=== PATIENT | male | born 1970 | race Caucasian/White ===

== ENCOUNTER 2018-09-15 12:12 | Observation (INO) ==
[2018-09-15 13:24] LABS: Basophils # 0.1 K/mcL (0.0-0.2); Basophils % 0.9 %; Eosinophils % 0.7 %; Hematocrit 50.7 % (37.5-50.1); Hemoglobin 16.9 g/dL (12.9-16.9); Immature Granulocytes % 0.2 % (0-4); Lymphocytes # 1.4 K/mcL (0.6-4.6); Lymphocytes % 25.9 %; Mean Corpuscular HGB Conc 33.3 g/dL (31.6-35.5); Mean Corpuscular Hemoglobin 29.6 pg (28.0-33.3); Mean Corpuscular Volume 88.8 fL (83.0-100.0); Mean Platelet Volume 8.4 fL (9.4-12.4); Monocytes # 0.4 K/mcL (0.0-1.3); Monocytes % 7.6 %; Neutrophils # 3.6 K/mcL (1.6-8.9); Platelet Count 196 K/mcL (140-400); Red Blood Count 5.71 M/mcL (4.19-5.50); Red Cell Distribution Width 11.8 % (11.5-14.5); Segmented Neutrophils % 64.7 %
--- NOTE | 2018-09-15 13:37 | Emergency Department Note ---
Disposition Clinical Impression: TIA (transient ischemic attack) Disposition: Admitted As Inpatient Condition: Good Referrals: Pamela Ferguson CNP [Primary Care Provider] - General Adult HPI - General Chief complaint: ED Weakness Stated complaint: Weakness Time Seen by Provider: 09/15/18 12:15 Source: EMS Limitations: no limitations - History of Present Illness Pain Scale: 0 - Related Data Home Medications Medication Instructions Recorded Confirmed Trihexyphenidyl [Artane] 2 mg PO BID 09/27/15 08/11/17 diazePAM [Valium] 5 mg PO BID 07/08/16 08/11/17 Previous Rx's Medication Instructions Recorded Triamcinolone Acet 0.1% CRM 1 appl TP TID PRN #1 tube 08/11/17 [Kenalog] Allergies Allergy/AdvReac Type Severity Reaction Status Date / Time Amoxicillin Allergy Anaphylaxis Verified 06/07/18 08:25 sulfamethoxazole Allergy Swelling Verified 06/07/18 08:25 [From Bactrim] of Lip/Tongue/Throat tramadol Allergy Seizure Verified 01/03/17 19:49 trimethoprim [From Bactrim] Allergy Swelling Verified 01/03/17 19:49 of Lip/Tongue/Throat Paroxetine [From Paxil] AdvReac See Verified 01/03/17 19:49 Comments Past Medical History - Past Medical History Medical history: Reports: hypertension Surgical history: Reports: appendectomy, other Psychiatric history: Reports: anxiety - Social History Smoking Status: Current every day smoker Smokeless Tobacco Status: No Alcohol use: Reports: none Drug use: Reports: none Physical Exam - General Limitations: no limitations General appearance: alert, in no apparent distress Course Vital Signs Temperature 98.4 F 09/15/18 12:14 Pulse Rate 81 09/15/18 12:14 Respiratory Rate 16 09/15/18 12:14 Blood Pressure 140/96 09/15/18 12:14 O2 Sat by Pulse Oximetry 100 09/15/18 12:14 Temperature 98.4 F 09/15/18 12:14 Pulse Rate 81 09/15/18 12:14 Respiratory Rate 16 09/15/18 12:14 Blood Pressure 140/96 09/15/18 12:14 O2 Sat by Pulse Oximetry 100 09/15/18 12:14 Oxygen Delivery Oxygen Delivery Room Air Medical Decision Making - Lab Data Result diagrams: 09/15/18 13:12 Lab Results 09/15/18 Range/Units 13:12 WBC 5.5 (4.3-11.1) K/mcL RBC 5.71 H (4.19-5.50) M/mcL Hgb 16.9 (12.9-16.9) g/dL Hct 50.7 H (37.5-50.1) % MCV 88.8 (83.0-100.0) fL MCH 29.6 (28.0-33.3) pg MCHC 33.3 (31.6-35.5) g/dL RDW 11.8 (11.5-14.5) % Plt Count 196 (140-400) K/mcL MPV 8.4 L (9.4-12.4) fL Immature Gran % 0.2 (0-4) % Seg Neutrophils % 64.7 % Lymphocytes % 25.9 % Monocytes % 7.6 % Eosinophils % 0.7 % Basophils % 0.9 % Neutrophils # 3.6 (1.6-8.9) K/mcL Lymphocytes # 1.4 (0.6-4.6) K/mcL Monocytes # 0.4 (0.0-1.3) K/mcL Eosinophils # 0.0 (0.0-0.6) K/mcL Basophils # 0.1 (0.0-0.2) K/mcL Attestation Statement - Attestation Attestation: I examined this patient and my medical decision-making was reviewed with the Resident Physician. I agree with the documented findings, disposition and treatment plan as described except to the extent set forth below. 48-year-old male in presented to the emergency room for some intermittent numbness involving the crack of the right mouth as well as the right arm and right leg concerning for possible TIA. Patient's numbness involving the right arm has improved as well as the right leg but still has some numbness in the corner of the right mouth. There is no tongue involvement or vision changes. Concerns for TIA. Patient will need to be admitted for further workup and MRI.
[2018-09-15 13:49] LABS: BUN/Creatinine Ratio 11 (6-26); Blood Urea Nitrogen 10 mg/dL (6-20); Calcium 9.3 mg/dL (8.6-10.3); Carbon Dioxide 29 mEq/L (23-29); Chloride 103 mEq/L (98-107); Glucose 100 mg/dL (70-105); Magnesium 2.2 mg/dL (1.6-2.6); Osmolality,Calculated 281 (280-300); Potassium 4.5 mEq/L (3.5-5.1); Sodium 136 mEq/L (136-145); eGFR For Non-African Americans > 60 (> 60)
--- NOTE | 2018-09-15 14:05 | Emergency Department Note ---
Disposition Clinical Impression: TIA (transient ischemic attack) Disposition: Admitted As Inpatient Condition: Good Weakness HPI - General Chief complaint: ED Weakness Stated complaint: Weakness Time Seen by Provider: 09/15/18 12:15 Source: patient, EMS Limitations: no limitations Nursing Notes Reviewed: Yes Vital Signs Reviewed: Yes - History of Present Illness HPI Narrative: This 48-year-old male complaining of a 2 week intermittent history of anesthesias in his right face including a corner of mouth and right cheekbone, "tightness" in the right side of his neck, and weakness in his right arm and leg. Patient admits to a history of dystonia, but states that the symptoms are new. Patient states that he has experienced some lightheadedness/dizziness and feeling as though he may pass out as well as blurred vision over the past 2 months. Pt Subjective Complaint: generalized weakness/fatigue, paresthesias Onset (ago): week(s) Duration: intermittent Location: RUE, RLE, face Migration: none Pain Severity: none Pain Scale: 0 If pain, quality: tingling, numbness Improves with: none Worsens with: none Associated symptoms: Reports: headaches. Denies: chest pain, confusion, dysuria, shortness of breath - Related Data Home Medications Medication Instructions Recorded Confirmed RX: Trihexyphenidyl [Artane] 2 mg PO BID 09/27/15 09/15/18 RX: diazePAM [Valium] 5 mg PO BID 07/08/16 09/15/18 Previous Rx's Medication Instructions Recorded RX: Aspirin 81 mg PO DAILY tab.chew 09/16/18 Allergies Allergy/AdvReac Type Severity Reaction Status Date / Time Amoxicillin Allergy Anaphylaxis Verified 06/07/18 08:25 sulfamethoxazole Allergy Swelling Verified 06/07/18 08:25 [From Bactrim] of Lip/Tongue/Throat tramadol Allergy Seizure Verified 01/03/17 19:49 trimethoprim [From Bactrim] Allergy Swelling Verified 01/03/17 19:49 of Lip/Tongue/Throat Paroxetine [From Paxil] AdvReac See Verified 01/03/17 19:49 Comments All systems ED: reviewed and negative except as stated. Constitutional: Reports: weight change Eyes: Reports: vision change Cardiovascular: Denies: chest pain Respiratory: Denies: dyspnea Gastrointestinal: Denies: abdominal pain Neurological: Reports: headache, weakness Past Medical History - Past Medical History Medical history: Reports: hypertension Surgical history: Reports: appendectomy, other Psychiatric history: Reports: anxiety - Social History Smoking Status: Current every day smoker Smokeless Tobacco Status: No Alcohol use: Reports: none Drug use: Reports: none Physical Exam - General Limitations: no limitations General appearance: alert, in no apparent distress Course Course Narrative: Patient history, presentation and exam is concerning for TIA. Patient will have CT head, chest x-ray, EKG performed to assess for acute pathology Vital Signs Temperature 98.4 F 09/15/18 12:14 Pulse Rate 81 09/15/18 12:14 Respiratory Rate 16 09/15/18 12:14 Blood Pressure 140/96 09/15/18 12:14 O2 Sat by Pulse Oximetry 100 09/15/18 12:14 Temperature 98.1 F 09/15/18 18:47 Pulse Rate 75 09/15/18 18:47 Respiratory Rate 16 09/15/18 18:47 Blood Pressure 115/77 09/15/18 18:47 O2 Sat by Pulse Oximetry 96 09/15/18 18:47 Oxygen Delivery Oxygen Delivery Room Air Weakness - Medical Records Medical records reviewed: Yes I reviewed the patient's medical records. - Lab Data Lab results reviewed: Yes I reviewed the patient's lab results. Result diagrams: 09/16/18 05:31 09/16/18 05:31 Lab Results 09/15/18 09/15/18 Range/Units 13:12 13:12 WBC 5.5 (4.3-11.1) K/mcL RBC 5.71 H (4.19-5.50) M/mcL Hgb 16.9 (12.9-16.9) g/dL Hct 50.7 H (37.5-50.1) % MCV 88.8 (83.0-100.0) fL MCH 29.6 (28.0-33.3) pg MCHC 33.3 (31.6-35.5) g/dL RDW 11.8 (11.5-14.5) % Plt Count 196 (140-400) K/mcL MPV 8.4 L (9.4-12.4) fL Immature Gran % 0.2 (0-4) % Seg Neutrophils % 64.7 % Lymphocytes % 25.9 % Monocytes % 7.6 % Eosinophils % 0.7 % Basophils % 0.9 % Neutrophils # 3.6 (1.6-8.9) K/mcL Lymphocytes # 1.4 (0.6-4.6) K/mcL Monocytes # 0.4 (0.0-1.3) K/mcL Eosinophils # 0.0 (0.0-0.6) K/mcL Basophils # 0.1 (0.0-0.2) K/mcL Sodium 136 (136-145) mEq/L Potassium 4.5 (3.5-5.1) mEq/L Chloride 103 (98-107) mEq/L Carbon Dioxide 29 (23-29) mEq/L BUN 10 (6-20) mg/dL Creatinine 0.93 (0.70-1.30) mg/dL Est GFR ( Amer) > 60 (> 60) Est GFR (Non-Af Amer) > 60 (> 60) BUN/Creatinine Ratio 11 (6-26) Glucose 100 (70-105) mg/dL Calculated Osmolality 281 (280-300) Calcium 9.3 (8.6-10.3) mg/dL Magnesium 2.2 (1.6-2.6) mg/dL - Radiology Data Radiology results reviewed: Yes I reviewed the patient's radiology results. Head CT 09/15/18 13:30 IMPRESSION: No acute intracranial abnormality. D/ / Franco Cruz / Franco Cruz Interpreting Provider: Franco Cruz Chest X-Ray 09/15/18 13:35 IMPRESSION: No acute cardiopulmonary findings. D/ / Darion Love / Darion Love Interpreting Provider: Darion Love - EKG Data EKG attestation: Yes I reviewed and interpreted this EKG. EKG results narrative: Patient EKG shows normal sinus rhythm with a ventricular rate of 81 bpm SC interval of 134 ms, QRS duration of 106 ms, QT/QTc intervals of 367/426, respe ctively. Rate rhythm and axis appear normal and there appears to be no signs of acute ischemic change.
--- NOTE | 2018-09-15 16:22 | Internal Med History&Physical ---
Date of Encounter: 09/15/18 Time of Encounter: 15:00 Internal Medicine - H&P: HPI Chief complaint: Her sensation of face/foot Admitted From: Home History of present illness: Patient is a 48-year-old male with past medical history significant for generalized anxiety disorder and dystonia who presents to the ER on 09/15/18 due to altered sensation on right corner of mouth and dorsal aspect of right foot. Patient reported that his symptoms started approximately one day ago and has been intermittent lasting for minutes. Patient reports at times having the inability to move his muscles. Patients symptoms continued the day of admissio n and was concerned and so decided to come into the ER for evaluation. In the ER, CT of the head showed no acute findings and chest x-ray was negative for any acute findings as well; labs were unremarkable. Patient will be admitted to the medical surgical floor for CVA/TIA rule out. Past Med Surg Social Fam HX - Past Medical History Medical history: hypertension Additional medical history: dystonia Psychiatric history: anxiety - Past Surgical History Surgical History: appendectomy, other Additional surgical history: undescended testcicle removed - Social History Smoking Status: Current every day smoker Smokeless Tobacco Status: No Alcohol use: none Drug use: none - Additional Family History Additional family history: Noncontributory Internal Medicine - H&P: Meds Trihexyphenidyl [Artane] 2 mg PO BID 09/27/15 [History] diazePAM [Valium] 5 mg PO BID 07/08/16 [History] Allergy/AdvReac Type Severity Reaction Status Date / Time Amoxicillin Allergy Anaphylaxis Verified 06/07/18 08:25 sulfamethoxazole Allergy Swelling Verified 06/07/18 08:25 [From Bactrim] of Lip/Tongue/Throat tramadol Allergy Seizure Verified 01/03/17 19:49 trimethoprim [From Bactrim] Allergy Swelling Verified 01/03/17 19:49 of Lip/Tongue/Throat Paroxetine [From Paxil] AdvReac See Verified 01/03/17 19:49 Comments All Systems PM: A 10-system review of systems was performed and is negative for pertinent findings except as documented above in the HPI. - Constitutional Vitals: Temp Pulse Resp BP Pulse Ox 98.4 F 77 16 129/94 100 09/15/18 12:14 09/15/18 14:59 09/15/18 14:59 09/15/18 14:59 09/15/18 12:14 General appearance: Present: A&O X 3, no acute distress Exam: As below - Head Head exam: Present: atraumatic, normocephalic - Eye Eye exam: Present: EOMI, normal appearance. Absent: nystagmus - ENT ENT exam: Present: mucous membranes moist - Respiratory Respiratory exam: Present: CTAB. Absent: accessory muscle use, rales, rhonchi, wheezes - Cardiovascular Cardiovascular exam: Present: RRR, +S1, +S2. Absent: diastolic murmur, gallop, rubs, systolic murmur - GI/Abdominal GI/Abdominal exam: Present: normal bowel sounds, soft, no peritoneal signs. Absent: distended, tenderness - Extremities Exam Extremities exam: Absent: pedal edema - Expanded Lower Extremities Exam Lower Leg exam: Absent: swelling - Neurological Exam Neurological exam: Present: CN II-XII intact, oriented X3, no focal deficits, strengths equal and symetr throughout. Absent: motor sensory deficit, facial droop, speech deficit - Psychiatric Psychiatric exam: Present: anxious - Skin Skin exam: Present: normal color Internal Med - H&P Results - Labs CBC & Chem 7: 09/15/18 13:12 09/15/18 13:12 Labs: Short CBC 09/15/18 Range/Units 13:12 WBC 5.5 (4.3-11.1) K/mcL Hgb 16.9 (12.9-16.9) g/dL Hct 50.7 H (37.5-50.1) % Plt Count 196 (140-400) K/mcL Neutrophils # 3.6 (1.6-8.9) K/mcL BMP 09/15/18 13:12 Sodium 136 Potassium 4.5 Chloride 103 Carbon Dioxide 29 BUN 10 Creatinine 0.93 Glucose 100 Calcium 9.3 - Impressions ITS Impressions Head CT 09/15/18 13:30 IMPRESSION: No acute intracranial abnormality. D/ / Franco Cruz / Franco Cruz Interpreting Provider: Franco Cruz Chest X-Ray 09/15/18 13:35 IMPRESSION: No acute cardiopulmonary findings. D/ / Darion Love / Darion Love Interpreting Provider: Darion Love - Assessment and plan (1) Sensation disturbance of skin Current Visit: Yes Status: Acute Assessment and plan: Patient presents due to altered sensation on right corner of mouth and dorsal aspect of right foot. CT of the head showed no acute findings. Will order MRI and MRA of neck/brain Will consult neurology and appreciate recommendations (2) Dystonia Current Visit: Yes Status: Acute Assessment and plan: Patient reports at least a 10 year history of dystonia on Artane Continue current management Neurology consulted as above and appreciate any additional recommendations (3) MO (generalized anxiety disorder) Current Visit: Yes Status: Acute Assessment and plan: Continue home dose of diazepam (4) DVT prophylaxis Current Visit: Yes Status: Acute Assessment and plan: Subcutaneous heparin - Time Spent With Patient Total time spent is greater than 50% in coordination of care (as documented) at patient's floor/unit and/or counseling patient:
[2018-09-15] MEDS ORDERED: Naloxone 0.4 MG/ML INJ IVP PRN (16:26)
[2018-09-15] MEDS: Aspirin 81 MG TAB.CHEW PO SCH (18:08)
[2018-09-15] MEDS ORDERED: Perflutren Lipid Microsphere 1.3 ML in 0.9 % Sodium Chloride 8.7 ML IVP ONE (19:26)
[2018-09-15] MEDS: diazePAM 5 MG TABLET PO SCH (20:18)
[2018-09-16 05:43] LABS: Basophils # 0.1 K/mcL (0.0-0.2); Basophils % 0.9 %; Eosinophils # 0.1 K/mcL (0.0-0.6); Eosinophils % 1.1 %; Hematocrit 51.4 % (37.5-50.1); Hemoglobin 16.9 g/dL (12.9-16.9); Immature Granulocytes % 0.1 % (0-4); Lymphocytes # 2.3 K/mcL (0.6-4.6); Lymphocytes % 32.8 %; Mean Corpuscular HGB Conc 32.9 g/dL (31.6-35.5); Mean Corpuscular Hemoglobin 29.7 pg (28.0-33.3); Mean Corpuscular Volume 90.3 fL (83.0-100.0); Mean Platelet Volume 8.5 fL (9.4-12.4); Monocytes # 0.5 K/mcL (0.0-1.3); Monocytes % 6.8 %; Neutrophils # 4.1 K/mcL (1.6-8.9); Platelet Count 197 K/mcL (140-400); Red Blood Count 5.69 M/mcL (4.19-5.50); Red Cell Distribution Width 11.8 % (11.5-14.5); Segmented Neutrophils % 58.3 %
[2018-09-16 06:04] LABS: BUN/Creatinine Ratio 11 (6-26); Blood Urea Nitrogen 11 mg/dL (6-20); Calcium 9.5 mg/dL (8.6-10.3); Carbon Dioxide 29 mEq/L (23-29); Chloride 103 mEq/L (98-107); Glucose 92 mg/dL (70-105); Osmolality,Calculated 283 (280-300); Potassium 4.5 mEq/L (3.5-5.1); Sodium 137 mEq/L (136-145); eGFR For Non-African Americans > 60 (> 60)
[2018-09-16] MEDS: Aspirin 81 MG TAB.CHEW PO SCH (09:20)
[2018-09-16] MEDS: diazePAM 5 MG TABLET PO SCH (09:21)
--- NOTE | 2018-09-16 10:48 | Neurology - Consult Note ---
<Blaise Ortega - Last Filed: 09/16/18 11:00> Date of Encounter: 09/16/18 Time of Encounter: 11:05 Assessment and Plan (1) Sensation disturbance of skin Status: Acute Patient's symptoms do not follow any distribution pattern Neurological exam is nonfocal and nonlateralizing MRI brain, head and neck MRA are negative. Patient states his symptoms have resolved Likely patient's symptoms are not neurological in nature. No further neurological testing necessary. (2) Dystonia Status: Acute Patient has history of dystonia. There are no signs of dystonia on exam. Patient should follow-up with local neurologist at [facility] once discharged History of Present Illness Chief complaint: oral numbness HPI: Mr. Mello is a 48 year old male with history of generalized dystonia presents with chief complaint of numbness to the right corners of mouth and cheek as well as right dorsal aspect of foot. These symptoms started couple days ago and has been intermittent and lasting for a few minutes. Patient also states at times he is not able to move his right foot, toes or has a delayed response when he tries to move them. Patient denies history of stroke, slurred speech, difficulty swallowing, blurry vision, upper extremity numbness or weakness. CT of the head was negative. Past Med Surg Social Fam HX - Past Medical History Medical history: hypertension Additional medical history: dystonia Psychiatric history: anxiety - Past Surgical History Surgical History: appendectomy, other Additional surgical history: undescended testcicle removed - Social History Smoking Status: Current every day smoker Packs per day: 1 Smokeless Tobacco Status: No Alcohol use: none Drug use: none - Family History Father Hx Family Cardiac Disorders: Yes Hx Family Respiratory Disorders: Yes Hx Family Cancer: Yes Mother Hx Family Endocrine Disorder: Yes Medications and Allergies Trihexyphenidyl [Artane] 2 mg PO BID 09/27/15 [History] diazePAM [Valium] 5 mg PO BID 07/08/16 [History] Aspirin 81 mg PO DAILY tab.chew 09/16/18 [Rx] Allergy/AdvReac Type Severity Reaction Status Date / Time Amoxicillin Allergy Anaphylaxis Verified 06/07/18 08:25 sulfamethoxazole Allergy Swelling Verified 06/07/18 08:25 [From Bactrim] of Lip/Tongue/Throat tramadol Allergy Seizure Verified 01/03/17 19:49 trimethoprim [From Bactrim] Allergy Swelling Verified 01/03/17 19:49 of Lip/Tongue/Throat Paroxetine [From Paxil] AdvReac See Verified 01/03/17 19:49 Comments All Systems: The remainder of the systems were reviewed and are negative Review of Systems: Constitutional: Denies fever, chills HEENT: Denies headache, trauma, blurry vision, eye discharge, ear pain, ear discharge neck pain, sore throat, rhinorrhea Heart: Denies chest pain palpitations, LE edema Lungs: Denies shortness of breath cough Abdomen: Denies abdominal pain nausea vomiting diarrhea MSK: Denies back pain, falls, joint pain Kidney: Denies dysuria, hematuria Skin: Denies rash, ulcers Neuro: As per history of present illness Psych: denies axniety, depression Physical Examination - Vital Signs Vital Signs: Initial Vital Signs Temp Pulse Resp BP Pulse Ox 98.4 F 81 16 140/96 100 09/15/18 12:14 09/15/18 12:14 09/15/18 12:14 09/15/18 12:14 09/15/18 12:14 - Exam Exam: General: pleasant, without distress HEENT: Head atraumatic, normocephalic, EOMI, PERRL, absent ear discharge or trauma, Moist Mucous Membranes, uvula midline Neck: nontender to palpation, absent lymphadenopathy, Cardiovascualr: Regular rate and rhythm with no murmur, absent gallops or rubs, absent pedal edema, radial pulses 2 out of 4 Lungs: Clear to auscultation bilaterally, not in respiratory distress Abdomen: Soft nontender, nondistended positive bowel sounds, absent hepatomegaly Skin: warm and dry, absent rash, absent open wounds and nodules MSK: absent clubbing, cyanosis, joints without swelling Psych: Poor insight and judgment, calm - Constitutional General appearance: comfortable - Neurologic Sensorimotor examination: intact Motor examination - right side: 55: deltoids, biceps, triceps, wrist flexion, wrist extension, support team assoc, hip flexors, tibialis Anterior, quadriceps, toe extension (EHL), plantarflexion Motor examination - left side: 5/5: deltoids, biceps, triceps, wrist flexion, wrist extension, hip flexors, support team assoc, quadriceps, tibialis Anterior, toe extension (EHL), plantarflexion Detailed sensory examination: intact, light touch, pain Reflex and gait examination: normal gait Reflexes: Biceps: 2+, Triceps: 2+, Brachioradialis: 2+, Patella: 2+, Achilles: 2+ Mental Status Examination: awake, alert, oriented to person, oriented to place, oriented to time, follows commands appropriately, answers questions appropriately, no agnosia, no aphasia, no aproxia Cranial nerve examination: PERRL, EOMI, visual almaguer intact, sensory to face intact, mastication intact, no facial asymmetry is present, no dysarthria, hearing is intact symmetrically, soft palate elevates bilaterally upon phonation, flexes SCM and trapezius muscles symmetrically with full power, tongue protrudes midline, no atrophy or facial fasiculations present Cerebellar examination: no dysmetria, performs finger to nose and heel to jerez symmetrically without ataxia, no gait ataxia, no truncal ataxia, no difficulty with rapid alternating movements Results - Laboratory Findings CBC and BMP: 09/16/18 05:31 09/16/18 05:31 Abnormal lab findings: Abnormal lab results RBC 5.69 M/mcL (4.19-5.50) H 09/16/18 05:31 Hct 51.4 % (37.5-50.1) H 09/16/18 05:31 MPV 8.5 fL (9.4-12.4) L 09/16/18 05:31 Consult Discharge Plan - Plan Referrals: Pamela Ferguson, OPERATIONS TECH [Advanced Practice Nurse] - 09/22/18 1:00 pm <Jared Kelly I - Last Filed: 09/16/18 16:57> Assessment and Plan (1) Sensation disturbance of skin Status: Acute Pt was seen and examined, my medical decision was reviewed with the Resident Physician, I agree with the documented findings, disposition and treatment plas as described except to the extent set forth below As patient who is a known history of flow dystonia has been following up with neurology in [facility] had been on Artane as well as Valium for the past several years admitted with these multiple nonspecific symptoms predominantly not following any physiological pattern to be consistent with TIA or CVA. On neurological examination I did not see any lateralizing sign to be concern of a stroke. At the same time he did have some mild increased tone in his right lower extremities and in the foot but I did not see any evidence of generalized dystonia in his upper body. Regardless he is getting workup his MRA of the brain and head and neck all has been negative. At this time I would not recommend any further neurological workup except we may check for underlying metabolic abnormalities like vitamin B12 or vitamin D deficiency as may present with some nonspecific symptoms beside that he may continue on his medication that he is been taking at home If Remained stable could be discharged with of follow-up with his primary neurologist Jared Kelly MD History of Present Illness HPI: Mr. Mello is a 48 year old male All Systems: The remainder of the systems were reviewed and are negative Physical Examination - Vital Signs Vital Signs: Initial Vital Signs Temp Pulse Resp BP Pulse Ox 98.4 F 81 16 140/96 100 09/15/18 12:14 09/15/18 12:14 09/15/18 12:14 09/15/18 12:14 09/15/18 12:14 Results - Laboratory Findings CBC and BMP: 09/16/18 05:31 09/16/18 05:31 Abnormal lab findings: Abnormal lab results RBC 5.69 M/mcL (4.19-5.50) H 09/16/18 05:31 Hct 51.4 % (37.5-50.1) H 09/16/18 05:31 MPV 8.5 fL (9.4-12.4) L 09/16/18 05:31
[2018-09-16 11:13] VITALS: BP 102/66
--- NOTE | 2018-09-16 14:12 | Discharge Summary ---
- NOTES TO OUTPATIENT PROVIDER Notes to Outpatient Provider: Patient to follow-up with neurologist at [facility] Date of Encounter: 09/16/18 Time of Encounter: 11:00 - Discharge Diagnosis (1) Sensation disturbance of skin Priority: Primary Status: Acute (2) Dystonia Priority: Secondary Status: Acute Hospital course: Patient is a 48-year-old male with past medical history significant for generalized anxiety disorder and dystonia who presents to the ER on 09/15/18 due to altered sensation on right corner of mouth and dorsal aspect of right foot. Patient reported that his symptoms started approximately one day ago and has been intermittent lasting for minutes. Patient reports at times having the inability to move his muscles. Patients symptoms continued the day of admission and was concerned and so decided to come into the ER for evaluation. In the ER, CT of the head showed no acute findings and chest x-ray was negative for any acute findings as well; labs were unremarkable. Patient will be admitted to the medical surgical floor for CVA/TIA rule out. During patients hospital stay MRI/MRA of the brain and neck were negative without any acute findings. CT of the head also negative without any acute findings as above. Neurology consulted with no further recommendations other than to follow-up as an outpatient with local neurologists at [facility] for management of dystonia. - Time Spent with Patient Total time spent providing and/or coordinating discharge services: Less than 30 minutes - Discharge Medications Home Medications: Trihexyphenidyl [Artane] 2 mg PO BID 09/27/15 [History] diazePAM [Valium] 5 mg PO BID 07/08/16 [History] Aspirin 81 mg PO DAILY tab.chew 09/16/18 [Rx] Allergies/Adverse Reactions: Allergy/AdvReac Type Severity Reaction Status Date / Time Amoxicillin Allergy Anaphylaxis Verified 06/07/18 08:25 sulfamethoxazole Allergy Swelling Verified 06/07/18 08:25 [From Bactrim] of Lip/Tongue/Throat tramadol Allergy Seizure Verified 01/03/17 19:49 trimethoprim [From Bactrim] Allergy Swelling Verified 01/03/17 19:49 of Lip/Tongue/Throat Paroxetine [From Paxil] AdvReac See Verified 01/03/17 19:49 Comments Date of admission: 09/15/18 14:34 Primary care physician: PCP NONE Consults: 09/15/18 16:33 Consult to Neurology [CONS] Routine Consulting Provider: Neurology [facility] Reason for Consult: cva/tia r/o with h/o dystonia Call Completed: Yes - Constitutional Vitals: Temp Pulse Resp BP Pulse Ox 97.8 F 70 17 102/66 97 09/16/18 11:12 09/16/18 11:12 09/16/18 11:12 09/16/18 11:12 09/16/18 11:12 General appearance: Present: A&O X 3, no acute distress Exam: Gen.: Nonacute distress, alert and oriented 3 Skin: Normal color - Patient Status Disposition: Home, Self-Care Condition: Good - Discharge Instructions Follow Up With: NONE,PCP [Primary Care Provider] -
== END 2018-09-16 15:38 | disposition home or self-care (01) ==
LOC: EMEROOARM 12:12 → 3BNU 12:12 → SUATTDRO 14:34 → 3BNU 15:20
PROVIDERS: ADMIT Internal Medicine Nephrology; ATTEND Hospitalist

== ENCOUNTER 2019-04-20 10:52 | Observation (INO) ==
[2019-04-20] MEDS ORDERED: 0.9 % Sodium Chloride 1,000 ML IVC ONE (11:23)
--- NOTE | 2019-04-20 11:46 | Emergency Department Note ---
Disposition Clinical Impression: Chest pain, rule out acute myocardial infarction Disposition: Admitted As Inpatient Condition: Fair Instructions: Chest Pain (ED) Forms: ED Satisfaction Letter Time of Disposition: 12:20 General Adult HPI - General Chief complaint: ED Syncope Stated complaint: hypotension Time Seen by Provider: 04/20/19 11:14 Source: patient Limitations: no limitations Nursing Notes Reviewed: Yes Vital Signs Reviewed: Yes - History of Present Illness HPI Narrative: 49-year-old male presents emergency Department with concerns of lightheadedness and episodes of hypotension. Patient states these episodes occur when he stands up quickly or exerts himself. He also states that he has palpitations and chest pressure that time. He states he is currently taking Artane and Valium at home. He has been taking his blood pressure prior to taking his medications and if it is low he will skip it. He states yesterday his blood pressure was 75/30. Today in the emergency department he is not hypotensive however he did not become tachycardic with sitting up in the bed. He does state that he has had issues with dehydration in the past. Patient denies recent trauma. He denies associated diaphoresis or shortness of breath with chest pain. It does not radiate. Pain Scale: 0 - Related Data Home Medications Medication Instructions Recorded Confirmed Trihexyphenidyl [Artane] 2 mg PO BID 09/27/15 04/20/19 diazePAM [Valium] 5 mg PO BID 07/08/16 04/20/19 Cholecalciferol (Vitamin D3) 2,000 unit PO 04/20/19 [Vitamin D] Cyanocobalamin (Vitamin B-12) 04/20/19 [Vitamin B-12] Cyanocobalamin (Vitamin B-12) 500 mcg PO 04/20/19 [Vitamin B-12] Previous Rx's Medication Instructions Recorded Aspirin 81 mg PO DAILY tab.chew 09/16/18 Allergies Allergy/AdvReac Type Severity Reaction Status Date / Time Amoxicillin Allergy Anaphylaxis Verified 06/07/18 08:25 sulfamethoxazole Allergy Swelling Verified 06/07/18 08:25 [From Bactrim] of Lip/Tongue/Throat tramadol Allergy Seizure Verified 01/03/17 19:49 trimethoprim [From Bactrim] Allergy Swelling Verified 01/03/17 19:49 of Lip/Tongue/Throat Paroxetine [From Paxil] AdvReac See Verified 01/03/17 19:49 Comments All systems ED: reviewed and negative except as stated. Review of Systems: As Per HPI Past Medical History - Past Medical History Attestation: Yes The following information was validated with the patient. Source: patient Medical history: Reports: hypertension Surgical history: Reports: appendectomy, other Psychiatric history: Reports: anxiety - Social History Smoking Status: Current every day smoker Smokeless Tobacco Status: No Alcohol use: Reports: none Drug use: Reports: none Physical Exam General: Alert and in no acute distress Skin: Warm, dry, intact Head: Normocephalic and atraumatic Neck: Supple, trachea midline and no tenderness Cardiovascular: RRR, no murmur, normal perfusion Respiratory: CTAB, no wheezing, cough, or respiratory distress Musculoskeletal: Normal strength, no tenderness, swelling or deformity GI: Soft, nontender, nondistended. Bowel sounds present Neuro: A&O to person, place, time and situation. No focal deficits noted on exam Psychiatric: cooperative and appropriate mood and affect. - General Limitations: no limitations General appearance: alert Course Vital Signs Temperature 98.4 F 04/20/19 10:55 Pulse Rate 81 04/20/19 10:55 Respiratory Rate 14 04/20/19 10:55 Blood Pressure 129/83 04/20/19 10:55 O2 Sat by Pulse Oximetry 98 04/20/19 10:55 Temperature 98.4 F 04/20/19 10:55 Pulse Rate 86 04/20/19 13:01 Respiratory Rate 16 04/20/19 13:01 Blood Pressure 124/89 04/20/19 13:01 O2 Sat by Pulse Oximetry 100 04/20/19 13:01 Oxygen Delivery Oxygen Delivery Room Air Medical Decision Making - MDM Narrative Medical decision making narrative: Laboratory evaluation was largely within normal limits. Initial troponin negative. EKG did not show evidence of STEMI. Patient was significant only concerned about his chest pain is described as a dull ache and worse with exertion. He does have a history of hyperlipidemia, tobacco abuse and family history of cardiac disease. He will be admitted for further care and evaluation of his chest pain. - Medical Records Medical records reviewed: Yes I reviewed the patient's medical records. - Lab Data Lab results reviewed: Yes I reviewed the patient's lab results. Result diagrams: 04/20/19 11:45 04/20/19 11:45 Lab Results 04/20/19 04/20/19 Range/Units 11:45 11:45 WBC 5.9 (4.3-11.1) K/mcL RBC 5.15 (4.19-5.50) M/mcL Hgb 15.2 (12.9-16.9) g/dL Hct 45.0 (37.5-50.1) % MCV 87.4 (83.0-100.0) fL MCH 29.5 (28.0-33.3) pg MCHC 33.8 (31.6-35.5) g/dL RDW 13.2 (11.5-14.5) % Plt Count 182 (140-400) K/mcL MPV 8.9 L (9.4-12.4) fL Immature Gran % 0.2 (0-4) % Seg Neutrophils % 64.7 % Lymphocytes % 27.4 % Monocytes % 6.4 % Eosinophils % 0.5 % Basophils % 0.8 % Neutrophils # 3.8 (1.6-8.9) K/mcL Lymphocytes # 1.6 (0.6-4.6) K/mcL Monocytes # 0.4 (0.0-1.3) K/mcL Eosinophils # 0.0 (0.0-0.6) K/mcL Basophils # 0.1 (0.0-0.2) K/mcL Sodium 138 (136-145) mEq/L Potassium 4.4 (3.5-5.1) mEq/L Chloride 98 (98-107) mEq/L Carbon Dioxide 31 H (23-29) mEq/L BUN 9 (6-20) mg/dL Creatinine 0.87 (0.70-1.30) mg/dL Est GFR ( Amer) > 60 (> 60) Est GFR (Non-Af Amer) > 60 (> 60) BUN/Creatinine Ratio 10 (6-26) Glucose 90 (70-105) mg/dL Calculated Osmolality 284 (280-300) Calcium 9.7 (8.6-10.3) mg/dL Total Bilirubin 0.8 (0.3-1.0) mg/dL AST 12 L (13-39) Units/L ALT 9 (7-52) Units/L Alkaline Phosphatase 68 (34-104) Units/L Troponin I < 0.03 (< 0.04) ng/mL Serum Total Protein 6.5 (6.4-8.9) g/dL Albumin 4.2 (3.5-5.7) g/dL Globulin 2.3 L (2.4-3.5) g/dL Albumin/Globulin Ratio 1.8 (1.1-2.2) - Radiology Data Radiology results reviewed: Yes I reviewed the patient's radiology results. - EKG Data EKG #1 EKG attestation: Yes I reviewed and interpreted this EKG. EKG results narrative: Normal sinus rhythm with rate of 78 without evidence of STEMI or other dysrhythmia. QTC of 413, QRS 103.
[2019-04-20 11:57] LABS: Basophils # 0.1 K/mcL (0.0-0.2); Basophils % 0.8 %; Eosinophils % 0.5 %; Hemoglobin 15.2 g/dL (12.9-16.9); Immature Granulocytes % 0.2 % (0-4); Lymphocytes # 1.6 K/mcL (0.6-4.6); Lymphocytes % 27.4 %; Mean Corpuscular HGB Conc 33.8 g/dL (31.6-35.5); Mean Corpuscular Hemoglobin 29.5 pg (28.0-33.3); Mean Corpuscular Volume 87.4 fL (83.0-100.0); Mean Platelet Volume 8.9 fL (9.4-12.4); Monocytes # 0.4 K/mcL (0.0-1.3); Monocytes % 6.4 %; Neutrophils # 3.8 K/mcL (1.6-8.9); Platelet Count 182 K/mcL (140-400); Red Blood Count 5.15 M/mcL (4.19-5.50); Red Cell Distribution Width 13.2 % (11.5-14.5); Segmented Neutrophils % 64.7 %
[2019-04-20 12:18] LABS: Alanine Aminotransferase 9 Units/L (7-52); Albumin 4.2 g/dL (3.5-5.7); Albumin/Globulin Ratio 1.8 (1.1-2.2); Alkaline Phosphatase 68 Units/L (34-104); Aspartate Amino Transferase 12 Units/L (13-39); BUN/Creatinine Ratio 10 (6-26); Bilirubin,Total 0.8 mg/dL (0.3-1.0); Blood Urea Nitrogen 9 mg/dL (6-20); Calcium 9.7 mg/dL (8.6-10.3); Carbon Dioxide 31 mEq/L (23-29); Chloride 98 mEq/L (98-107); Globulin 2.3 g/dL (2.4-3.5); Glucose 90 mg/dL (70-105); Osmolality,Calculated 284 (280-300); Potassium 4.4 mEq/L (3.5-5.1); Sodium 138 mEq/L (136-145); Total Protein 6.5 g/dL (6.4-8.9); Troponin I < 0.03 ng/mL (< 0.04); eGFR For Non-African Americans > 60 (> 60)
[2019-04-20] MEDS ORDERED: Aspirin 81 MG TAB.CHEW PO ONE (13:23)
[2019-04-20] MEDS ORDERED: Naloxone 0.4 MG/ML INJ IVP PRN (13:32)
[2019-04-20] MEDS ORDERED: Ondansetron 4 MG/2 ML VIAL IVP PRN (13:32)
[2019-04-20] MEDS ORDERED: MOM Conc 10 ML UD.LIQ PO PRN (13:32)
[2019-04-20] MEDS ORDERED: *HR* Promethazine 25 MG/ML VIAL IVP PRN (13:32)
[2019-04-20] MEDS ORDERED: Mag Hydrox/Al Hydrox/Simeth 30 ML UDC PO PRN (13:32)
[2019-04-20] MEDS ORDERED: Perflutren Lipid Microsphere 1.3 ML in 0.9 % Sodium Chloride 8.7 ML IVP ONE (13:48)
[2019-04-20 14:55] LABS: Amphetamine Screen,Urine Negative ng/mL (Cutoff=1000); Barbiturate Screen,Urine Negative ng/mL (Cutoff=200); Benzodiazepines Screen,Urine Positive ng/mL (Cutoff=200); Cannabinoid Screen,Urine Negative ng/mL (Cutoff = 50); Cocaine Screen,Urine Negative ng/mL (Cutoff= 300); Opiate Screen,Urine Negative ng/mL (Cutoff=300); Phencyclidine Screen,Urine Negative ng/mL (Cutoff=25)
--- NOTE | 2019-04-20 15:25 | Internal Med History&Physical ---
Date of Encounter: 04/20/19 Time of Encounter: 15:22 Internal Medicine - H&P: HPI Admitted From: Home Plans for Post Hospital Care: Home History of present illness: Mr. Mello is a 49 year old male presents emergency Department with concerns of lightheadedness and episodes of hypotension. Patient states these episodes occur when he stands up quickly or exerts himself. He also states that he has palpitations and chest pressure that time. He states he is currently taking Artane and Valium at home. He has been taking his blood pressure prior to taking his medications and if it is low he will skip it. He states yesterday his blood pressure was 75/30. Today in the emergency department he is not hypotensive however he did not become tachycardic with sitting up in the bed. He does state that he has had issues with dehydration in the past. Patient denies recent trauma. He denies associated diaphoresis or shortness of breath with chest pain. It does not radiate. Pt has hx of dystonia and f/u with neurology at outside hospital. He takes Artane and vallium for that and has been on artane for 11 years and vallium for 5 years. He denies recent sick contact. Code status discussed with patient and he wishes to be full code. Past Med Surg Social Fam HX - Past Medical History Medical history: hypertension Additional medical history: generalized dystonia, Psychiatric history: anxiety - Past Surgical History Surgical History: appendectomy, other Additional surgical history: undescended testcicle removed - Social History Smoking Status: Current every day smoker Smokeless Tobacco Status: No Alcohol use: none Drug use: none - Family History Father Hx Family Cardiac Disorders: Yes Hx Family Respiratory Disorders: Yes Hx Family Cancer: Yes Mother Hx Family Endocrine Disorder: Yes Internal Medicine - H&P: Meds Trihexyphenidyl [Artane] 2 mg PO BID 09/27/15 [History] diazePAM [Valium] 5 mg PO TID PRN 07/08/16 [History] Aspirin 81 mg PO DAILY tab.chew 09/16/18 [Rx] Cyanocobalamin (Vitamin B-12) [Vitamin B-12] 500 mcg PO DAILY 04/20/19 [History] Allergy/AdvReac Type Severity Reaction Status Date / Time Amoxicillin Allergy Anaphylaxis Verified 06/07/18 08:25 sulfamethoxazole Allergy Swelling Verified 06/07/18 08:25 [From Bactrim] of Lip/Tongue/Throat tramadol Allergy Seizure Verified 01/03/17 19:49 trimethoprim [From Bactrim] Allergy Swelling Verified 01/03/17 19:49 of Lip/Tongue/Throat Paroxetine [From Paxil] AdvReac See Verified 01/03/17 19:49 Comments All Systems PM: A 10-system review of systems was performed and is negative for pertinent findings except as documented above in the HPI. Review of systems: REVIEW OF SYSTEMS: CONSTITUTIONAL: No weight loss, fever, chills, weakness or fatigue. HEENT: Eyes: No visual loss, blurred vision, double vision or yellow sclerae. Ears, Nose, Throat: No hearing loss, sneezing, congestion, runny nose or sore throat. SKIN: No rash or itching. CARDIOVASCULAR: No chest pain, chest pressure or chest discomfort. No palpitations or edema. RESPIRATORY: No shortness of breath, cough or sputum. GASTROINTESTINAL: No anorexia, nausea, vomiting or diarrhea. No abdominal pain or blood. GENITOURINARY: No dysuria, urgency, or frequency. NEUROLOGICAL: No headache, dizziness, syncope, paralysis, ataxia, numbness or tingling in the extremities. No change in bowel or bladder control. MUSCULOSKELETAL: No muscle, back pain, joint pain or stiffness. HEMATOLOGIC: No anemia, bleeding or bruising. LYMPHATICS: No enlarged nodes. No history of splenectomy. PSYCHIATRIC: No history of depression or anxiety. ENDOCRINOLOGIC: No reports of sweating, cold or heat intolerance. No polyuria or polydipsia. - Constitutional Vitals: Temp Pulse Resp BP Pulse Ox 98.4 F 86 16 124/89 100 04/20/19 10:55 04/20/19 13:01 04/20/19 13:01 04/20/19 13:01 04/20/19 13:01 General appearance: Present: A&O X 3 Exam: PHYSICAL EXAMINATION: GENERAL APPEARANCE: The patient is alert, oriented and in no acute distress. HEENT: Head is normocephalic. The sinuses are nontender. Pupils are equal and reactive. The nares are patent. Oropharynx clear without lesions. NECK: Supple without lymphadenopathy. HEART: Regular rate and rhythm. LUNGS: No crackles or wheezes are heard. ABDOMEN: Soft, nontender, nondistended with good bowel sounds heard. Inguinal area is normal. EXTREMITIES: Without cyanosis, clubbing or edema. NEUROLOGICAL: Gross nonfocal. SKIN: Warm and dry without any rash. Internal Med - H&P Results - Labs CBC & Chem 7: 04/20/19 11:45 04/20/19 11:45 Labs: Short CBC 04/20/19 Range/Units 11:45 WBC 5.9 (4.3-11.1) K/mcL Hgb 15.2 (12.9-16.9) g/dL Hct 45.0 (37.5-50.1) % Plt Count 182 (140-400) K/mcL Neutrophils # 3.8 (1.6-8.9) K/mcL BMP 04/20/19 11:45 Sodium 138 Potassium 4.4 Chloride 98 Carbon Dioxide 31 H BUN 9 Creatinine 0.87 Glucose 90 Calcium 9.7 Cardiac Enzymes 04/20/19 04/20/19 Range/Units 11:45 13:57 Troponin I < 0.03 < 0.03 (< 0.04) ng/mL Liver Function 04/20/19 Range/Units 11:45 Total Bilirubin 0.8 (0.3-1.0) mg/dL AST 12 L (13-39) Units/L ALT 9 (7-52) Units/L Alkaline Phosphatase 68 (34-104) Units/L Albumin 4.2 (3.5-5.7) g/dL - Impressions ITS Impressions Chest X-Ray 04/20/19 11:23 IMPRESSION: Mild left basilar atelectasis. D/ / Susie Mcfarlane MD / Susie Mcfarlane MD Interpreting Provider: Susie Mcfarlane MD - Assessment and Plan (1) Hypotension Current Visit: Yes Status: Acute Assessment and plan: 49 year old male with dystonia and anxiety on artane and vallium presented with reported hypotension and lightheadedness at home. on vallium and artane for dystonia for years. recently noticed low BP and was not able to take Artane and villium due to low bP. BP was normal at ED, labs unremarkable. CXR no infection. Received IVF, will continue. Orthostatic BP and echo. continue cycling trop. Qualifiers: Hypotension type: unspecified hypotension type Qualified Code(s): I95.9 - Hypotension, unspecified (2) Dystonia Current Visit: No Status: Acute Assessment and plan: Currently on artane and vallium, may consult neurology if meds need to be changed. (3) MO (generalized anxiety disorder) Current Visit: No Status: Acute Assessment and plan: continue home vallium. (4) DVT prophylaxis Current Visit: No Status: Acute Assessment and plan: ambulating. - Time Spent With Patient Total time spent is greater than 50% in coordination of care (as documented) at patient's floor/unit and/or counseling patient: Greater than 35 minutes
[2019-04-20 15:48] LABS: Bilirubin,Urine Negative (Negative); Blood,Urine Negative (Negative); Clarity,Urine Clear (Clear); Color,Urine Yellow (Yellow); Glucose,Urine (UA) Normal (Normal); Ketones,Urine Negative (Negative); Leukocyte Esterase,Urine Negative (Negative); Nitrite,Urine Negative (Negative); Protein,Urine Negative (Neg-Trace); Specific Gravity,Urine 1.012 (1.010-1.025); Urobilinogen,Urine Normal (Normal)
[2019-04-20] MEDS: Ringers Solution, Lactated 2,000 ML IVC SCH (16:20)
[2019-04-20] MEDS: diazePAM 5 MG TABLET PO SCH (21:09)
--- NOTE | 2019-04-20 23:57 | Electrocardiograph Report ---
[place] [id number] Test Date: 2019-04-20 Pat Name: Rhys Mello Department: EXAM7 Room: 3B48 Gender: M Occupational Health Nursing Director: : 1970 Requested By: Thang Smith Order Number: [id number] Reading MD: Dg Barragan Measurements Intervals [place] Rate: 78 P: 60 NM: 129 QRS: 85 QRSD: 103 T: 66 QT: 362 QTc: 413 Interpretive Statements Sinus rhythm RSR' in V1 or V2, probably normal variant Electronically Signed On 04-20-2019 23:55:52 EDT by Dg Barragan
[2019-04-21 06:48] LABS: Basophils % 0.7 %; Eosinophils # 0.1 K/mcL (0.0-0.6); Eosinophils % 1.1 %; Hematocrit 41.8 % (37.5-50.1); Immature Granulocytes % 0.2 % (0-4); Lymphocytes # 1.6 K/mcL (0.6-4.6); Lymphocytes % 35.1 %; Mean Corpuscular HGB Conc 33.5 g/dL (31.6-35.5); Mean Corpuscular Hemoglobin 29.4 pg (28.0-33.3); Mean Corpuscular Volume 87.8 fL (83.0-100.0); Monocytes # 0.3 K/mcL (0.0-1.3); Neutrophils # 2.5 K/mcL (1.6-8.9); Platelet Count 173 K/mcL (140-400); Red Blood Count 4.76 M/mcL (4.19-5.50); Red Cell Distribution Width 13.2 % (11.5-14.5); Segmented Neutrophils % 55.9 %
[2019-04-21 07:01] LABS: BUN/Creatinine Ratio 8 (6-26); Blood Urea Nitrogen 7 mg/dL (6-20); Calcium 9.1 mg/dL (8.6-10.3); Carbon Dioxide 30 mEq/L (23-29); Chloride 104 mEq/L (98-107); Glucose 89 mg/dL (70-105); Osmolality,Calculated 285 (280-300); Phosphorous 3.4 mg/dL (2.7-4.5); Potassium 4.3 mEq/L (3.5-5.1); Sodium 139 mEq/L (136-145); eGFR For Non-African Americans > 60 (> 60)
[2019-04-21] MEDS: Aspirin 81 MG TAB.CHEW PO SCH (09:49)
[2019-04-21] MEDS: Ringers Solution, Lactated 2,000 ML IVC SCH (09:50)
[2019-04-21] MEDS: Cyanocobalamin (B-12) 1,000 MCG TABLET PO SCH (09:54)
[2019-04-21] MEDS: diazePAM 5 MG TABLET PO SCH ×3 (10:01→20:21)
--- NOTE | 2019-04-21 11:15 | Internal Med Progress Note ---
Hospitalist Progress Note - Encounter Date of Encounter: 04/21/19 Time of Encounter: 11:13 - Subjective Interval History: Patient seen and examined in the room. Blood pressure was reviewed with patient, he reported no lightheadedness overnight. He denies any chest pain, shortness of breath, or palpitation. - Exam Vitals: Temp Pulse Resp BP Pulse Ox 97.8 F 66 16 133/82 98 04/21/19 07:24 04/21/19 07:24 04/21/19 07:04/21/19 07:04/21/19 09:49 Exam: PHYSICAL EXAMINATION: GENERAL APPEARANCE: The patient is alert, oriented and in no acute distress. HEENT: Head is normocephalic. The sinuses are nontender. Pupils are equal and reactive. The nares are patent. Oropharynx clear without lesions. NECK: Supple without lymphadenopathy. HEART: Regular rate and rhythm. LUNGS: No crackles or wheezes are heard. ABDOMEN: Soft, nontender, nondistended with good bowel sounds heard. Inguinal area is normal. EXTREMITIES: Without cyanosis, clubbing or edema. NEUROLOGICAL: Gross nonfocal. SKIN: Warm and dry without any rash. - Assessment and Plan (1) Hypotension Current Visit: Yes Status: Acute Assessment and Plan: 04/20 49 year old male with dystonia and anxiety on artane and vallium presented with reported hypotension and lightheadedness at home. on vallium and artane for dystonia for years. recently noticed low BP and was not able to take Artane and villium due to low bP. BP was normal at ED, labs unremarkable. CXR no infection. Received IVF, will continue. Orthostatic BP and echo. continue cycling trop. 04/21 Orthostatic vital signs was normal. Echocardiogram revealed normal ejection fraction, mild tricuspid regurgitation, trivial pericardial effusion without evidence of cardiac tamponade. Patient home medication Artane and Valium were continued. Continue monitoring BP, if BP continues to be normal, anticipated discharge in the morning, we will recommend patient to get a new blood pressure machine at home. (2) Dystonia Current Visit: No Status: Acute Assessment and Plan: Currently on artane and vallium, may consult neurology if meds need to be changed. (3) MO (generalized anxiety disorder) Current Visit: No Status: Acute Assessment and Plan: continue home vallium. (4) DVT prophylaxis Current Visit: No Status: Acute Assessment and Plan: ambulating. - Time Spent with Patient Total time spent is greater than 50% in coordination of care (as documented) at patient's floor/unit and/or counseling patient: Greater than 35 minutes Plan of Care Discussed with: patient Internal Medicine: Result - Labs CBC & Chem 7: 04/21/19 06:19 04/21/19 06:19 Labs: Short CBC 04/20/19 04/21/19 Range/Units 11:45 06:19 WBC 5.9 4.5 (4.3-11.1) K/mcL Hgb 15.2 14.0 (12.9-16.9) g/dL Hct 45.0 41.8 (37.5-50.1) % Plt Count 182 173 (140-400) K/mcL Neutrophils # 3.8 2.5 (1.6-8.9) K/mcL BMP 04/20/19 04/21/19 11:45 06:19 Sodium 138 139 Potassium 4.4 4.3 Chloride 98 104 Carbon Dioxide 31 H 30 H BUN 9 7 Creatinine 0.87 0.87 Glucose 90 89 Calcium 9.7 9.1 Cardiac Enzymes 04/20/19 04/20/19 04/20/19 Range/Units 11:45 13:57 19:36 Troponin I < 0.03 < 0.03 < 0.03 (< 0.04) ng/mL Liver Function 04/20/19 Range/Units 11:45 Total Bilirubin 0.8 (0.3-1.0) mg/dL AST 12 L (13-39) Units/L ALT 9 (7-52) Units/L Alkaline Phosphatase 68 (34-104) Units/L Albumin 4.2 (3.5-5.7) g/dL Urine 04/20/19 Range/Units 11:50 Urine Color Yellow (Yellow) Urine Clarity Clear (Clear) Urine pH 8.0 (5.0-8.0) pH Units Ur Specific [place] 1.012 (1.010-1.025) Urine Protein Negative (Neg-Trace) mg/dL Urine Glucose (UA) Normal (Normal) mg/dL - Impressions Impressions Chest X-Ray 04/20/19 11:23 IMPRESSION: Mild left basilar atelectasis. D/ / Susie Mcfarlane MD / Susie Mcfarlane MD Interpreting Provider: Susie Mcfarlane MD Echocardiogram 04/20/19 13:34 Impressions: LVEF 60%. Indeterminate LV diastolic function. Normal right ventricular structure and function. Definity echo contrast was used. Mild tricuspid regurgitation. No pulmonary hypertension. There is a trivial pericardial effusion present. There is no echocardiographic evidence of tamponade. Left Ventricular Wall Motion: Rest Echo Findings All wall segments showed normal motion. Findings: Study Quality * Technically sub-optimal due to body habitus. ECG Findings * Normal sinus rhythm. Left Ventricle * LVEF 60%. * Normal LV chamber size, wall thickness and function. * Indeterminate LV diastolic function. * Definity echo contrast was used. Right Ventricle * Normal right ventricular structure and function. Left Atrium * Normal left atrial size. Right Atrium * Normal right atrial size. Aortic Valve * No aortic regurgitation. * Aortic valve not well visualized. * No aortic stenosis. Mitral Valve * No mitral regurgitation. * Normal mitral valve structure. * No mitral stenosis. Tricuspid Valve * Tricuspid valve not well visualized. * Mild tricuspid regurgitation. * Estimated RA pressure is 3 mmHg. * Estimated RVSP is 29 mmHg. * No pulmonary hypertension. Pulmonic Valve * Pulmonic valve is not well visualized. * No pulmonic stenosis. * No pulmonic regurgitation. Pulmonary Artery * Pulmonary artery not well visualized. Aorta * Normally sized aortic root. Pericardium * There is a trivial pericardial effusion present. * There is no echocardiographic evidence of tamponade. Interatrial Septum * No evidence of PFO by color Doppler. IVC * Normal IVC dimensions and inspiratory collapse. Consult Discharge Plan - Plan Referrals: Pamela Ferguson, [employer] [Primary Care Provider] - 04/28/19 1:00 pm (1) Hypotension Qualifiers: Hypotension type: unspecified hypotension type Qualified Code(s): I95.9 - Hypotension, unspecified
[2019-04-22 08:00] VITALS: BP 129/88
[2019-04-22] MEDS: diazePAM 5 MG TABLET PO SCH (08:36)
[2019-04-22] MEDS: Aspirin 81 MG TAB.CHEW PO SCH (08:36)
[2019-04-22] MEDS: Cyanocobalamin (B-12) 1,000 MCG TABLET PO SCH (08:36)
--- NOTE | 2019-04-22 10:29 | Discharge Summary ---
- NOTES TO OUTPATIENT PROVIDER Notes to Outpatient Provider: f/u with PCP within a week. Date of Encounter: 04/22/19 Time of Encounter: 10:26 - Discharge Diagnosis (1) Hypotension Priority: Primary Status: Ruled-out Qualifiers: Hypotension type: unspecified hypotension type Qualified Code(s): I95.9 - Hypotension, unspecified (2) Dystonia Priority: Secondary Status: Chronic (3) MO (generalized anxiety disorder) Priority: Secondary Status: Chronic (4) DVT prophylaxis Priority: Primary Status: Acute Hospital course: Mr. Mello is a 49 year old male presents emergency Department with concerns of lightheadedness and episodes of hypotension. Patient states these episodes occur when he stands up quickly or exerts himself. He also states that he has palpitations and chest pressure that time. He states he is currently taking Artane and Valium at home. He has been taking his blood pressure prior to taking his medications and if it is low he will skip it. He states yesterday his blood pressure was 75/30. Today in the emergency department he is not hypotensive however he did not become tachycardic with sitting up in the bed. He does state that he has had issues with dehydration in the past. Patient denies recent trauma. He denies associated diaphoresis or shortness of breath with chest pain. It does not radiate. Pt has hx of dystonia and f/u with neurology at outside hospital. He takes Artane and vallium for that and has been on artane for 11 years and vallium for 5 years. He denies recent sick contact. He was monitored with tele and no arrhythmia was detected. BP was measured and has been consistently normal. Orhtostatic BP was nomal as well. After discussed with patient, he is discharged today. He will f/u with PCP and bring the BP machine to check in PCP office to ensure it works properly. Discharge discussed with: patient Time spent discussing smoking cessation with patient: more than 10 minutes - Time Spent with Patient Total time spent providing and/or coordinating discharge services: Time spent: Greater than 30 minutes - Discharge Medications Prescriptions: Continued Aspirin 81 mg PO DAILY tab.chew Cyanocobalamin (Vitamin B-12) [Vitamin B-12] 500 mcg PO DAILY Trihexyphenidyl [Artane] 2 mg PO BID diazePAM [Valium] 5 mg PO TID PRN PRN Reason: Anxiety Home Medications: Trihexyphenidyl [Artane] 2 mg PO BID 09/27/15 [History] diazePAM [Valium] 5 mg PO TID PRN 07/08/16 [History] Aspirin 81 mg PO DAILY tab.chew 09/16/18 [Rx] Cyanocobalamin (Vitamin B-12) [Vitamin B-12] 500 mcg PO DAILY 04/20/19 [History] Allergies/Adverse Reactions: Allergy/AdvReac Type Severity Reaction Status Date / Time Amoxicillin Allergy Anaphylaxis Verified 06/07/18 08:25 sulfamethoxazole Allergy Swelling Verified 06/07/18 08:25 [From Bactrim] of Lip/Tongue/Throat tramadol Allergy Seizure Verified 01/03/17 19:49 trimethoprim [From Bactrim] Allergy Swelling Verified 01/03/17 19:49 of Lip/Tongue/Throat Paroxetine [From Paxil] AdvReac See Verified 01/03/17 19:49 Comments Date of admission: 04/20/19 14:20 Primary care physician: Pamela Ferguson CNP Consults: 04/20/19 16:18 Consult to Manager Image [CONS] Routine Reason for SW Consult: discharge planning Anticipated date of discharge: 04/22/19 - Constitutional Vitals: Temp Pulse Resp BP Pulse Ox 98.0 F 78 15 129/88 97 04/22/19 07:52 04/22/19 07:52 04/22/19 07:52 04/22/19 07:52 04/22/19 07:52 General appearance: Present: A&O X 3 Exam: PHYSICAL EXAMINATION: GENERAL APPEARANCE: The patient is alert, oriented and in no acute distress. HEENT: Head is normocephalic. The sinuses are nontender. Pupils are equal and reactive. The nares are patent. Oropharynx clear without lesions. NECK: Supple without lymphadenopathy. HEART: Regular rate and rhythm. LUNGS: No crackles or wheezes are heard. ABDOMEN: Soft, nontender, nondistended with good bowel sounds heard. Inguinal area is normal. EXTREMITIES: Without cyanosis, clubbing or edema. NEUROLOGICAL: Gross nonfocal. SKIN: Warm and dry without any rash. - Patient Status Disposition: Home, Self-Care Condition: Fair Functional capacity at discharge: independent ambulation Overall status at discharge: patient is progressing back to baseline - Discharge Instructions Follow Up With: Pamela Ferguson CNP [Primary Care Provider] - 04/28/19 1:00 pm - Diet and Activity Activity: increase activity as tolerated Diet: advance to your usual diet
== END 2019-04-22 15:30 | disposition home or self-care (01) ==
LOC: 3BNU 10:52 → EMEROOARM 10:52 → 3BNU 16:05
PROVIDERS: ADMIT Internal Medicine Nephrology; ATTEND Internal Medicine Nephrology

== ENCOUNTER 2020-07-30 19:49 | Inpatient (IN) ==
[2020-07-30 20:50] LABS: Bilirubin,Urine Negative (Negative); Blood,Urine Negative (Negative); Clarity,Urine Clear (Clear); Color,Urine Yellow (Yellow); Glucose,Urine (UA) Normal (Normal); Ketones,Urine Negative (Negative); Leukocyte Esterase,Urine Negative (Negative); Nitrite,Urine Negative (Negative); PH,Urine 6.5 pH Units (5.0-8.0); Protein,Urine Trace mg/dL (Neg-Trace)
[2020-07-30 20:56] LABS: Basophils # 0.1 K/mcL (0.0-0.2); Basophils % 1.1 %; Eosinophils # 0.1 K/mcL (0.0-0.6); Eosinophils % 1.3 %; Hemoglobin 14.6 g/dL (12.9-16.9); Immature Granulocytes % 0.2 % (0-4); Lymphocytes # 2.3 K/mcL (0.6-4.6); Lymphocytes % 40.7 %; Mean Corpuscular HGB Conc 33.2 g/dL (31.6-35.5); Mean Corpuscular Hemoglobin 29.9 pg (28.0-33.3); Mean Corpuscular Volume 90.2 fL (83.0-100.0); Mean Platelet Volume 9.2 fL (9.4-12.4); Monocytes # 0.4 K/mcL (0.0-1.3); Monocytes % 7.7 %; Neutrophils # 2.7 K/mcL (1.6-8.9); Platelet Count 179 K/mcL (140-400); Red Blood Count 4.88 M/mcL (4.19-5.50); Red Cell Distribution Width 12.6 % (11.5-14.5); White Blood Count 5.6 K/mcL (4.3-11.1)
[2020-07-30 21:04] LABS: Amphetamine Screen,Urine Negative ng/mL (Cutoff=1000); Barbiturate Screen,Urine Negative ng/mL (Cutoff=200); Benzodiazepines Screen,Urine Positive ng/mL (Cutoff=200); Cannabinoid Screen,Urine Negative ng/mL (Cutoff = 50); Cocaine Screen,Urine Negative ng/mL (Cutoff= 300); Opiate Screen,Urine Negative ng/mL (Cutoff=300); Phencyclidine Screen,Urine Negative ng/mL (Cutoff=25)
[2020-07-30 21:16] LABS: Acetaminophen < 10 mcg/mL (10-20); Alanine Aminotransferase 12 Units/L (7-52); Albumin/Globulin Ratio 1.8 (1.1-2.2); Alkaline Phosphatase 50 Units/L (34-104); Aspartate Amino Transferase 12 Units/L (13-39); BUN/Creatinine Ratio 8 (6-26); Bilirubin,Direct 0.1 mg/dL (0.0-0.2); Bilirubin,Indirect 0.4 mg/dL (0.0-1.0); Bilirubin,Total 0.5 mg/dL (0.3-1.0); Blood Urea Nitrogen 7 mg/dL (6-20); Carbon Dioxide 29 mEq/L (23-29); Chloride 102 mEq/L (98-107); Chol/HDL Ratio 4.8 (0-4.9); Cholesterol 116 mg/dL (< 200); Ethanol < 10 mg/dL (Less than 10); Globulin 2.2 g/dL (2.4-3.5); Glucose 90 mg/dL (70-105); HDL Cholesterol 24 mg/dL (40-59); LDL Cholesterol,Calculated 71 mg/dL (< 100); Osmolality,Calculated 278 (280-300); Potassium 3.4 mEq/L (3.5-5.1); Salicylate < 2.5 mg/dL (15.0-30.0); Sodium 135 mEq/L (136-145); Total Protein 6.2 g/dL (6.4-8.9); Triglycerides 106 mg/dL (< 150); eGFR For African Americans > 60 (> 60); eGFR For Non-African Americans > 60 (> 60)
[2020-07-30 21:28] LABS: Thyroid Stimulating Hormone 0.718 mcIU/mL (0.340-5.600)
[2020-07-30] MEDS ORDERED: traZODone 50 MG TABLET PO PRN (23:09)
[2020-07-30] MEDS ORDERED: *HR* LORazepam 2 MG/ML VIAL IM PRN (23:09)
[2020-07-30] MEDS ORDERED: Mag Hydrox/Al Hydrox/Simeth 30 ML UDC PO PRN (23:09)
[2020-07-30] MEDS ORDERED: *HR* LORazepam 1 MG TABLET PO PRN (23:09)
[2020-07-30] MEDS ORDERED: haloperidoL 5 MG TABLET PO PRN (23:09)
[2020-07-30] MEDS ORDERED: Haloperidol Lactate 5 MG/ML VIAL IM PRN (23:09)
[2020-07-30] MEDS ORDERED: hydrOXYzine pamoate 25 MG CAPSULE PO PRN (23:09)
[2020-07-30] MEDS ORDERED: MOM Conc 10 ML UD.LIQ PO PRN (23:09)
[2020-07-30] MEDS ORDERED: diazePAM 5 MG TABLET PO PRN (23:13)
[2020-07-31 02:17] LABS: Estimated Average Glucose 100 mg/dl; Hemoglobin A1C 5.1 %
[2020-07-31] MEDS: Aspirin Enteric Coated 81 MG Tablet PO SCH (09:11)
[2020-07-31] MEDS: diazePAM 5 MG TABLET PO SCH ×3 (11:15→21:29)
[2020-08-01] MEDS: Aspirin Enteric Coated 81 MG Tablet PO SCH (08:41)
[2020-08-01] MEDS: diazePAM 5 MG TABLET PO SCH ×3 (08:41→21:29)
[2020-08-01] MEDS: Acetaminophen 325 MG TABLET PO PRN ×2 (12:10→20:12)
[2020-08-02] MEDS: diazePAM 5 MG TABLET PO SCH ×2 (08:36→14:56)
[2020-08-02] MEDS: Aspirin Enteric Coated 81 MG Tablet PO SCH (08:36)
[2020-08-02 10:03] VITALS: BP 106/76
[2020-08-02] MEDS: Acetaminophen 325 MG TABLET PO PRN (11:35)
== END 2020-08-02 15:20 | disposition home or self-care (01) | DRG 880 ==
LOC: EMEROOARM 19:49 → 1ANU 19:49
PROVIDERS: ADMIT Psychiatry & Neurology Psychiatry; ATTEND Psychiatry & Neurology Psychiatry